=== PATIENT | female | born 1955 | race Two or more races ===

== ENCOUNTER 2016-10-23 07:37 | Inpatient (IN) | payer MEDICARE, OTHER ==
[~2016-10-23] VITALS: Ht 165.1 cm; Wt 71.0 kg
[~2016-10-23 07:37] MED LIST: ATOR40TA52 PO; FLUO20CA19 PO; GABA800T97 PO; GLIP-115 PO; PANT40TA2 PO
[2016-10-23] MEDS ORDERED: PANTOPRAZOLE SODIUM 40 MG/10 ML VIAL IV STA (08:29)
[2016-10-23] MEDS ORDERED: SODIUM CHLORIDE 0.9% 1,000 ML IVB ONE (08:29)
[2016-10-23] MEDS ORDERED: ONDANSETRON HCL 4 MG/2 ML VIAL IV ONE (08:30)
[2016-10-23 09:07] LABS: Basophils # (auto) 0.1 uL; Basophils % (auto) 0.5 % (0.0-2.0); Eosinophils # (auto) 0 uL; Eosinophils % (auto) 0.1 % (0.0-7.0); Hemoglobin 17.8 g/dL (12.2-16.2); Lymphocytes # (auto) 1.5 uL; Monocytes # (auto) 1.9 uL; Neutrophils # (auto) 15.2 uL; Neutrophils % (auto) 81.4 % (37.0-80.0); White Blood Cell 18.7 10^3/uL (4.4-10.8)
[2016-10-23 09:08] LABS: DEFINITIVE VIEW TRANSMISSION; Mean Corpuscular Hemoglobin 30.5 pg (28.0-32.0); Mean Corpuscular Hgb Conc. 34.2 g/dL (32.0-36.0); Mean Corpuscular Volume 89.2 fL (80.0-100.0); Mean Platelet Volume 8.6 fL (7.4-10.4); Platelet Count (auto) 361 10^3/uL (140-450); Red Cell Distribution Width 12.8 % (11.6-16.0)
[2016-10-23 09:44] LABS: Albumin 4.9 g/dL (3.4-5.0); BUN/Creatinine Ratio 21.5; Calcium 10.6 mg/dL (8.5-10.1); Potassium 4.4 mmol/L (3.5-5.1); Total Protein 8.6 g/dL (6.4-8.2)
[2016-10-23] MEDS ORDERED: InsuLIN REG 1unit/0.01ml Soln (100units/ml) IV ONE (10:00)
[2016-10-23] MEDS ORDERED: InsuLIN R (HUMAN) 100 UNITS in SODIUM CHL 0.9% 99 ML IV SCH (10:14)
[2016-10-23] MEDS ORDERED: DEXTROSE (50%) 50ML SYRG IV PRN ×2 (10:15→16:00)
[2016-10-23] MEDS ORDERED: NITROGLYCERIN 0.4 MG SL TAB SL PRN (10:15)
[2016-10-23] MEDS ORDERED: PROMETHAZINE HCL 25 MG/ML 1ML IV PRN (10:15)
[2016-10-23] MEDS ORDERED: ACETAMINOPHEN 500 MG TAB PO PRN (10:15)
[2016-10-23] MEDS ORDERED: MORPHINE SULF INJ 2 MG/ML SYRINGE 1ML IV PRN ×2 (10:15)
[2016-10-23] MEDS ORDERED: cefTRIAXone 1GM/50ML D5W 50 ML IV ONE (10:30)
[2016-10-23] MEDS: SODIUM CHLORIDE 0.9% 1,000 ML IV SCH ×4 (10:32→23:18)
[2016-10-23] MEDS: ACCU-CHEK COMFORT CURVE STRIP VI SCH ×8 (11:08→23:39)
[2016-10-23 11:28] LABS: BUN/Creatinine Ratio 25.5; Calcium 9.6 mg/dL (8.5-10.1); Potassium 4.2 mmol/L (3.5-5.1)
[2016-10-23] MEDS ORDERED: SODIUM CHLORIDE 0.9% 1,000 ML IV SCH (14:14)
[2016-10-23] MEDS: GABAPENTIN 400 MG CAP PO SCH ×3 (14:24→22:00)
[2016-10-23] MEDS: InsuLIN REG 1unit/0.01ml Soln (100units/ml) SC SCH ×3 (16:17→23:40)
[2016-10-23 17:06] LABS: Urine Bilirubin Negative (Negative); Urine Blood TRACE /uL (Negative); Urine Color Yellow (Yellow); Urine Hyaline Cast FEW /lpf (0 - 2); Urine Ketone TRACE (Negative); Urine Mucus FEW (None Seen); Urine Nitrite Negative (Negative); Urine RBC 1 /hpf (0 - 4); Urine Squamous Epithelial Cell FEW /hpf (<5); Urine Urobilinogen Normal (Negative)
[2016-10-23 17:09] LABS: Urine Glucose 4+ mg/dL (Normal)
[2016-10-23] MEDS: HYDROcodone-ACET 5/325MG TAB PO PRN (21:02)
[2016-10-23 21:18] LABS: BUN/Creatinine Ratio 32.1; Calcium 8.5 mg/dL (8.5-10.1); Potassium 3.5 mmol/L (3.5-5.1)
[2016-10-23 21:22] VITALS: BP 120/85
[2016-10-23 22:35] VITALS: BP 120/85
[2016-10-23] MEDS: TEMAZEPAM 15 MG CAP PO PRN (23:29)
[2016-10-24] MEDS ORDERED: GLIP-116 PO (00:41)
[2016-10-24] MEDS ORDERED: ALPR0.5T PO (00:42)
[2016-10-24] MEDS: ACCU-CHEK COMFORT CURVE STRIP VI SCH ×6 (04:00→23:39)
[2016-10-24] MEDS: InsuLIN REG 1unit/0.01ml Soln (100units/ml) SC SCH ×6 (04:00→23:39)
[2016-10-24 05:00] VITALS: BP 123/67
[2016-10-24 05:26] LABS: Basophils # (auto) 0 uL; Basophils % (auto) 0.3 % (0.0-2.0); Eosinophils # (auto) 0 uL; Eosinophils % (auto) 0.1 % (0.0-7.0); Hematocrit 40.2 % (36.0-46.0); Hemoglobin 13.7 g/dL (12.2-16.2); Lymphocytes # (auto) 3.1 uL; Lymphocytes % (auto) 20.4 % (10.0-50.0); Mean Corpuscular Hemoglobin 31.1 pg (28.0-32.0); Mean Corpuscular Hgb Conc. 34.1 g/dL (32.0-36.0); Mean Corpuscular Volume 91.3 fL (80.0-100.0); Mean Platelet Volume 8.5 fL (7.4-10.4); Monocytes # (auto) 1.1 uL; Monocytes % (auto) 7.4 % (0.0-12.0); Neutrophils % (auto) 71.8 % (37.0-80.0); Platelet Count (auto) 256 10^3/uL (140-450); Red Cell Distribution Width 13.2 % (11.6-16.0); White Blood Cell 15.4 10^3/uL (4.4-10.8)
[2016-10-24] MEDS: SODIUM CHLORIDE 0.9% 1,000 ML IV SCH ×3 (05:34→19:06)
[2016-10-24 05:42] LABS: Albumin 3.5 g/dL (3.4-5.0); Calcium 8.7 mg/dL (8.5-10.1); Potassium 3.5 mmol/L (3.5-5.1)
[2016-10-24 05:45] LABS: Bilirubin, Total 0.7 mg/dL (0.2-1.0); Total Protein 6.2 g/dL (6.4-8.2)
[2016-10-24] MEDS: GABAPENTIN 400 MG CAP PO SCH ×4 (06:00→21:39)
[2016-10-24 08:00] VITALS: BP 110/71
[2016-10-24] MEDS: PANTOPRAZOLE SODIUM 40 MG/10 ML VIAL IV SCH (08:49)
[2016-10-24] MEDS: cefTRIAXone 1GM/50ML D5W 50 ML IV SCH (08:49)
[2016-10-24] MEDS: LORazepam 0.5 MG TAB PO PRN (08:50)
[2016-10-24] MEDS: HYDROcodone-ACET 5/325MG TAB PO PRN ×2 (08:51→17:23)
[2016-10-24 09:30] VITALS: BP 110/71
[2016-10-24 13:00] VITALS: BP 93/63
[2016-10-24 18:17] VITALS: BP 114/72
[2016-10-24 21:46] VITALS: BP 137/79
[2016-10-24] MEDS: TEMAZEPAM 15 MG CAP PO PRN (22:31)
[2016-10-25] VITALS (7 sets, daily range): BP systolic 111–139; BP diastolic 54–92
[2016-10-25] MEDS: SODIUM CHLORIDE 0.9% 1,000 ML IV SCH ×4 (02:19→21:33)
[2016-10-25] MEDS: InsuLIN REG 1unit/0.01ml Soln (100units/ml) SC SCH ×5 (04:00→18:08)
[2016-10-25] MEDS: ACCU-CHEK COMFORT CURVE STRIP VI SCH ×5 (04:03→18:09)
[2016-10-25] MEDS: GABAPENTIN 400 MG CAP PO SCH ×4 (06:13→21:33)
[2016-10-25] MEDS: PANTOPRAZOLE SODIUM 40 MG/10 ML VIAL IV SCH (09:18)
[2016-10-25] MEDS: cefTRIAXone 1GM/50ML D5W 50 ML IV SCH (09:18)
[2016-10-25] MEDS: LORazepam 0.5 MG TAB PO PRN (10:59)
[2016-10-25] MEDS ORDERED: LEVO500T3 PO (14:15)
[2016-10-25] MEDS ORDERED: TEMA15CA5 PO (14:15)
[2016-10-25] MEDS ORDERED: LEVEMIR SC (14:15)
[2016-10-25] MEDS ORDERED: LOP2C PO (14:15)
[2016-10-25] MEDS: TEMAZEPAM 15 MG CAP PO PRN (21:33)
[2016-10-25] MEDS ORDERED: INSULIN DETEMIR(LEVEMIR) 1unit/0.01ml Soln (100units/ml) SC SCH (22:00)
[2016-10-26] MEDS: ACCU-CHEK COMFORT CURVE STRIP VI SCH ×4 (00:17→17:46)
[2016-10-26] MEDS: SODIUM CHLORIDE 0.9% 1,000 ML IV SCH ×3 (04:34→17:45)
[2016-10-26 04:53] VITALS: BP 135/77
[2016-10-26] MEDS: GABAPENTIN 400 MG CAP PO SCH ×3 (06:38→17:45)
[2016-10-26] MEDS: InsuLIN REG 1unit/0.01ml Soln (100units/ml) SC SCH ×4 (06:39→17:46)
[2016-10-26 06:48] LABS: Basophils # (auto) 0 uL; Basophils % (auto) 0.4 % (0.0-2.0); Eosinophils # (auto) 0.1 uL; Eosinophils % (auto) 1.6 % (0.0-7.0); Hematocrit 40.6 % (36.0-46.0); Hemoglobin 13.9 g/dL (12.2-16.2); Lymphocytes % (auto) 27.6 % (10.0-50.0); Mean Corpuscular Hgb Conc. 34.3 g/dL (32.0-36.0); Mean Corpuscular Volume 90.3 fL (80.0-100.0); Mean Platelet Volume 8.4 fL (7.4-10.4); Monocytes # (auto) 0.6 uL; Monocytes % (auto) 8.4 % (0.0-12.0); Neutrophils # (auto) 4.5 uL; Platelet Count (auto) 230 10^3/uL (140-450); Red Cell Distribution Width 12.6 % (11.6-16.0); White Blood Cell 7.2 10^3/uL (4.4-10.8)
[2016-10-26 07:12] LABS: Potassium 3.2 mmol/L (3.5-5.1)
[2016-10-26 07:20] LABS: Albumin 3.9 g/dL (3.4-5.0); BUN/Creatinine Ratio 11.9; Calcium 9.2 mg/dL (8.5-10.1)
[2016-10-26 07:24] LABS: Bilirubin, Total 1.2 mg/dL (0.2-1.0); Total Protein 7.1 g/dL (6.4-8.2)
[2016-10-26 08:00] VITALS: BP 138/80
[2016-10-26] MEDS: PANTOPRAZOLE SODIUM 40 MG/10 ML VIAL IV SCH (08:55)
[2016-10-26] MEDS: cefTRIAXone 1GM/50ML D5W 50 ML IV SCH (08:55)
[2016-10-26 09:00] VITALS: BP 160/70
[2016-10-26] MEDS: HYDROcodone-ACET 5/325MG TAB PO PRN (09:06)
[2016-10-26 13:00] VITALS: BP 143/96
[2016-10-26 17:00] VITALS: BP 132/96
== END 2016-10-26 18:35 | disposition home or self-care (01) | DRG 872 ==
LOC: ER 07:37 → TELE 07:38 → TELE-EAST 21:16
PROVIDERS: ADMIT Internal Medicine; ATTEND Internal Medicine
DX: A41.9 Sepsis, unspecified organism (principal); N39.0 Urinary tract infection, site not specified; E72.51 Non-ketotic hyperglycinemia; E78.5 Hyperlipidemia, unspecified; I10 Essential (primary) hypertension; K52.9 Noninfective gastroenteritis and colitis, unspecified; F41.9 Anxiety disorder, unspecified; M21.371 Foot drop, right foot; E11.42 Type 2 diabetes mellitus with diabetic polyneuropathy; N20.0 Calculus of kidney; Z53.20 Procedure and treatment not carried out because of patient's decision for unspecified reasons; R91.8 Other nonspecific abnormal finding of lung field; M19.90 Unspecified osteoarthritis, unspecified site; Z86.19 Personal history of other infectious and parasitic diseases; Z79.899 Other long term (current) drug therapy; Z90.49 Acquired absence of other specified parts of digestive tract; Z90.89 Acquired absence of other organs; Z82.61 Family history of arthritis; Z79.4 Long term (current) use of insulin
CPT/HCPCS: 36415; 71250; 74176; 80048; 80053; 81001; 82150; 82962; 83036; 83690; 85025; 85652; 86141; 87040; 87086; 87493; 93005; 94761; 96361; 96365; 96375; C9113; J0696; J1815; J2405

== ENCOUNTER 2017-04-09 07:24 | Inpatient (IN) | payer MEDICARE, BC ==
[~2017-04-09] VITALS: Ht 165.1 cm; Wt 73.2 kg
[~2017-04-09 07:24] MED LIST changes: +ALPR0.5T PO; -GLIP-115 PO; +GLIP-116 PO; +LEVEMIR SC; +LEVO500T21 PO; +LOP2C PO; +TEMA15CA5 PO
[2017-04-09] MEDS ORDERED: SODIUM CHLORIDE 0.9% 500 ML IVB ONE (08:38)
[2017-04-09] MEDS ORDERED: PANTOPRAZOLE 40 MG/10 ML VIAL IV STA (08:38)
[2017-04-09] MEDS ORDERED: MORPHINE SULFATE 10 MG/ML INJ 1ML SDV IV ONE (08:45)
[2017-04-09] MEDS ORDERED: ONDANSETRON HCL 4 MG/2 ML VIAL IV ONE (08:45)
[2017-04-09] MEDS ORDERED: cloNIDine HCL 0.1 MG TAB PO ONE (10:00)
[2017-04-09] MEDS ORDERED: InsuLIN REG 1unit/0.01ml Soln (100units/ml) IV ONE ×2 (10:00→11:45)
[2017-04-09 10:30] LABS: Basophils # (auto) 0 uL; Basophils % (auto) 0.1 % (0.0-2.0); Eosinophils # (auto) 0 uL; Hematocrit 51.6 % (36.0-46.0); Hemoglobin 17.4 g/dL (12.2-16.2); Lymphocytes # (auto) 1.4 uL; Lymphocytes % (auto) 7.5 % (10.0-50.0); Mean Corpuscular Hemoglobin 31.3 pg (28.0-32.0); Mean Corpuscular Hgb Conc. 33.7 g/dL (32.0-36.0); Mean Corpuscular Volume 93.1 fL (80.0-100.0); Monocytes # (auto) 0.9 uL; Monocytes % (auto) 4.8 % (0.0-12.0); Neutrophils # (auto) 16.8 uL; Neutrophils % (auto) 87.6 % (37.0-80.0); Platelet Count (auto) 317 10^3/uL (140-450); Red Blood Cells 5.55 10^6/uL (4.0-5.20); Red Cell Distribution Width 13.3 % (11.8-14.3); White Blood Cell 19.1 10^3/uL (4.4-10.8)
[2017-04-09 10:56] LABS: Urine Bacteria FEW /hpf (None Seen); Urine Blood 1+ /uL (Negative); Urine Hyaline Cast FEW /lpf (0 - 2); Urine WBC <1 /hpf (0 - 5)
[2017-04-09 11:05] LABS: Albumin 5.2 g/dL (3.4-5.0); BUN/Creatinine Ratio 9.3; Bilirubin, Total 1.3 mg/dL (0.2-1.0); Calcium 10.4 mg/dL (8.5-10.1); Potassium 3.8 mmol/L (3.5-5.1); Total Protein 9.1 g/dL (6.4-8.2)
[2017-04-09] MEDS ORDERED: SODIUM CHLORIDE 0.9% 1,000 ML IV SCH ×4 (11:33→17:33)
[2017-04-09] MEDS ORDERED: InsuLIN R (HUMAN) 100 UNITS in SODIUM CHL 0.9% 99 ML IV SCH (11:38)
[2017-04-09] MEDS ORDERED: PANTOPRAZOLE 40 MG/10 ML VIAL IV ONE (11:45)
[2017-04-09] MEDS ORDERED: LORazepam 0.5 MG TAB PO PRN (11:45)
[2017-04-09] MEDS ORDERED: NITROGLYCERIN 0.4 MG SL TAB SL PRN (11:45)
[2017-04-09] MEDS ORDERED: DEXTROSE (50%) 50ML SYRG IV PRN ×2 (11:45)
[2017-04-09] MEDS ORDERED: MORPHINE SULFATE 10 MG/ML INJ 1ML SDV IV PRN ×2 (11:45)
[2017-04-09] MEDS ORDERED: TEMAZEPAM 15 MG CAP PO PRN (11:45)
[2017-04-09] MEDS ORDERED: cefTRIAXone 1GM/50ML D5W 50 ML IV ONE (11:45)
[2017-04-09] MEDS ORDERED: ACETAMINOPHEN 500 MG TAB PO PRN (11:45)
[2017-04-09] MEDS ORDERED: ACCU-CHEK COMFORT CURVE STRIP VI SCH (12:00)
[2017-04-09] MEDS: ACCU-CHEK COMFORT CURVE STRIP VI SCH ×9 (12:45→22:30)
[2017-04-09 13:04] LABS: Hematocrit 50.5 % (36.0-46.0)
[2017-04-09] MEDS: SODIUM CHLORIDE 0.9% 1,000 ML IV SCH ×3 (13:07→17:38)
[2017-04-09] MEDS: InsuLIN R (HUMAN) 100 UNITS in SODIUM CHL 0.9% 99 ML IV SCH (13:22)
[2017-04-09 13:34] LABS: BUN/Creatinine Ratio 11.9; Potassium 4.1 mmol/L (3.5-5.1)
[2017-04-09] MEDS: metroNIDAZOLE 500MG/100ML 100 ML IV SCH ×2 (15:05→18:44)
[2017-04-09] MEDS: PROMETHAZINE HCL 25 MG/ML 1ML IV PRN (15:08)
[2017-04-09 17:16] LABS: Calcium 9.1 mg/dL (8.5-10.1)
[2017-04-09 17:20] LABS: BUN/Creatinine Ratio 14.7
[2017-04-09 18:02] LABS: Hematocrit 45.6 % (36.0-46.0); Hemoglobin 15.8 g/dL (12.2-16.2)
[2017-04-09] MEDS: PANTOPRAZOLE 40 MG TAB PO SCH (22:00)
[2017-04-10] MEDS: SODIUM CHLORIDE 0.9% 1,000 ML IV SCH ×4 (00:04→20:59)
[2017-04-10] MEDS: metroNIDAZOLE 500MG/100ML 100 ML IV SCH ×5 (00:16→23:37)
[2017-04-10 01:14] LABS: Hematocrit 41.6 % (36.0-46.0); Hemoglobin 14.1 g/dL (12.2-16.2)
[2017-04-10] MEDS: ACCU-CHEK COMFORT CURVE STRIP VI SCH ×15 (01:30→21:45)
[2017-04-10 01:31] LABS: BUN/Creatinine Ratio 18.3; Calcium 9.3 mg/dL (8.5-10.1); Potassium 3.8 mmol/L (3.5-5.1)
[2017-04-10] MEDS: PROMETHAZINE HCL 25 MG/ML 1ML IV PRN (04:33)
[2017-04-10] MEDS: cefTRIAXone 1GM/50ML D5W 50 ML IV SCH (09:13)
[2017-04-10] MEDS: PANTOPRAZOLE 40 MG TAB PO SCH ×2 (09:48→21:53)
[2017-04-10 10:34] LABS: Basophils # (auto) 0.1 uL; Basophils % (auto) 0.5 % (0.0-2.0); Eosinophils # (auto) 0 uL; Eosinophils % (auto) 0.1 % (0.0-7.0); Hemoglobin 13.3 g/dL (12.2-16.2); Lymphocytes # (auto) 3.2 uL; Mean Corpuscular Hemoglobin 31.1 pg (28.0-32.0); Mean Corpuscular Hgb Conc. 33.3 g/dL (32.0-36.0); Mean Corpuscular Volume 93.3 fL (80.0-100.0); Monocytes # (auto) 1.9 uL; Monocytes % (auto) 11.3 % (0.0-12.0); Neutrophils # (auto) 11.5 uL; Neutrophils % (auto) 69.1 % (37.0-80.0); Nucleated Red Blood Cells % 0.1 %; Platelet Count (auto) 225 10^3/uL (140-450); Red Blood Cells 4.28 10^6/uL (4.0-5.20); Red Cell Distribution Width 13.1 % (11.8-14.3); White Blood Cell 16.6 10^3/uL (4.4-10.8)
[2017-04-10 10:55] LABS: Albumin 3.7 g/dL (3.4-5.0); Bilirubin, Total 0.8 mg/dL (0.2-1.0); Calcium 8.9 mg/dL (8.5-10.1); Potassium 3.3 mmol/L (3.5-5.1); Total Protein 6.8 g/dL (6.4-8.2)
[2017-04-10] MEDS: InsuLIN R (HUMAN) 100 UNITS in SODIUM CHL 0.9% 99 ML IV SCH (12:45)
[2017-04-10] MEDS ORDERED: INSULIN DETEMIR(LEVEMIR) 1unit/0.01ml Soln (100units/ml) SC ONE (13:30)
[2017-04-10] MEDS ORDERED: POTASSIUM CHL 20 Meq TABLET PO ONE (13:45)
[2017-04-10 16:45] LABS: Calcium 8.8 mg/dL (8.5-10.1); Potassium 3.5 mmol/L (3.5-5.1)
[2017-04-10] MEDS: HYDROcodone-ACET 5/325MG TAB PO PRN (17:39)
[2017-04-10] MEDS: INSULIN DETEMIR(LEVEMIR) 1unit/0.01ml Soln (100units/ml) SC SCH (21:53)
[2017-04-10] MEDS: MAGNESIUM OXIDE 400 MG TAB PO SCH (21:55)
[2017-04-10 22:00] VITALS: BP 113/70
[2017-04-10 22:50] LABS: Albumin 3.4 g/dL (3.4-5.0); Calcium 8.3 mg/dL (8.5-10.1); Potassium 3.6 mmol/L (3.5-5.1); Total Protein 5.8 g/dL (6.4-8.2)
[2017-04-11] MEDS: ACCU-CHEK COMFORT CURVE STRIP VI SCH ×7 (01:57→23:29)
[2017-04-11] MEDS: SODIUM CHLORIDE 0.9% 1,000 ML IV SCH ×4 (01:57→21:48)
[2017-04-11] MEDS: HYDROcodone-ACET 5/325MG TAB PO PRN ×2 (01:59→20:08)
[2017-04-11] MEDS ORDERED: DEXTROSE (50%) 50ML SYRG IV PRN (03:15)
[2017-04-11] MEDS: InsuLIN REG 1unit/0.01ml Soln (100units/ml) SC SCH ×6 (04:10→23:29)
[2017-04-11] MEDS: metroNIDAZOLE 500MG/100ML 100 ML IV SCH ×4 (05:30→23:28)
[2017-04-11 05:45] LABS: Basophils # (auto) 0.1 uL; Basophils % (auto) 0.6 % (0.0-2.0); Eosinophils # (auto) 0.1 uL; Eosinophils % (auto) 1.4 % (0.0-7.0); Hematocrit 33.7 % (36.0-46.0); Hemoglobin 11.7 g/dL (12.2-16.2); Lymphocytes # (auto) 2.3 uL; Lymphocytes % (auto) 22.6 % (10.0-50.0); Mean Corpuscular Hemoglobin 32.1 pg (28.0-32.0); Mean Corpuscular Hgb Conc. 34.6 g/dL (32.0-36.0); Mean Corpuscular Volume 92.8 fL (80.0-100.0); Monocytes # (auto) 0.8 uL; Monocytes % (auto) 7.8 % (0.0-12.0); Neutrophils # (auto) 6.9 uL; Neutrophils % (auto) 67.6 % (37.0-80.0); Platelet Count (auto) 155 10^3/uL (140-450); Red Blood Cells 3.63 10^6/uL (4.0-5.20); Red Cell Distribution Width 13.2 % (11.8-14.3); White Blood Cell 10.2 10^3/uL (4.4-10.8)
[2017-04-11 06:02] LABS: Albumin 3.3 g/dL (3.4-5.0); BUN/Creatinine Ratio 28.6; Bilirubin, Total 0.9 mg/dL (0.2-1.0); Calcium 8.2 mg/dL (8.5-10.1); Magnesium 2.1 mg/dL (1.6-2.6); Potassium 3.9 mmol/L (3.5-5.1); Total Protein 5.8 g/dL (6.4-8.2)
[2017-04-11] MEDS: INSULIN DETEMIR(LEVEMIR) 1unit/0.01ml Soln (100units/ml) SC SCH ×2 (06:46→21:29)
[2017-04-11 09:00] VITALS: BP 121/69
[2017-04-11] MEDS: cefTRIAXone 1GM/50ML D5W 50 ML IV SCH (10:11)
[2017-04-11] MEDS: MAGNESIUM OXIDE 400 MG TAB PO SCH ×2 (10:11→21:35)
[2017-04-11] MEDS: PANTOPRAZOLE 40 MG TAB PO SCH ×2 (10:11→21:35)
[2017-04-11 13:00] VITALS: BP 130/84
[2017-04-11 17:00] VITALS: BP 132/68
[2017-04-11 21:59] VITALS: BP 130/74
[2017-04-12] MEDS: ACCU-CHEK COMFORT CURVE STRIP VI SCH ×5 (03:48→19:33)
[2017-04-12] MEDS: InsuLIN REG 1unit/0.01ml Soln (100units/ml) SC SCH ×5 (03:48→19:34)
[2017-04-12 05:00] VITALS: BP 158/82
[2017-04-12] MEDS: SODIUM CHLORIDE 0.9% 1,000 ML IV SCH ×3 (05:08→18:58)
[2017-04-12] MEDS: PROMETHAZINE HCL 25 MG/ML 1ML IV PRN ×2 (05:08→10:52)
[2017-04-12] MEDS: metroNIDAZOLE 500MG/100ML 100 ML IV SCH ×3 (05:40→17:52)
[2017-04-12] MEDS: HYDROcodone-ACET 5/325MG TAB PO PRN ×2 (05:43→20:05)
[2017-04-12] MEDS: INSULIN DETEMIR(LEVEMIR) 1unit/0.01ml Soln (100units/ml) SC SCH ×2 (06:37→21:44)
[2017-04-12] MEDS: cefTRIAXone 1GM/50ML D5W 50 ML IV SCH (08:51)
[2017-04-12 09:00] VITALS: BP 137/81
[2017-04-12] MEDS: MAGNESIUM OXIDE 400 MG TAB PO SCH ×2 (10:52→21:39)
[2017-04-12] MEDS: PANTOPRAZOLE 40 MG TAB PO SCH ×2 (10:52→21:39)
[2017-04-12 13:00] VITALS: BP 149/93
[2017-04-12 17:00] VITALS: BP 143/90
[2017-04-12 22:00] VITALS: BP 148/94
[2017-04-13] MEDS: metroNIDAZOLE 500MG/100ML 100 ML IV SCH ×2 (00:16→06:45)
[2017-04-13] MEDS: SODIUM CHLORIDE 0.9% 1,000 ML IV SCH (01:04)
[2017-04-13] MEDS: InsuLIN REG 1unit/0.01ml Soln (100units/ml) SC SCH ×5 (04:00→16:00)
[2017-04-13] MEDS: ACCU-CHEK COMFORT CURVE STRIP VI SCH ×5 (04:25→16:00)
[2017-04-13 05:04] VITALS: BP 136/76
[2017-04-13 06:22] LABS: INR 1.04 (0.9-1.15); Partial Thromboplastin Time 25.4 sec (22.64-33.71); Prothrombin Time 11.3 sec (9.37-12.3)
[2017-04-13] MEDS: INSULIN DETEMIR(LEVEMIR) 1unit/0.01ml Soln (100units/ml) SC SCH (06:37)
[2017-04-13] MEDS: HYDROcodone-ACET 5/325MG TAB PO PRN (07:58)
[2017-04-13 08:00] VITALS: BP 132/76
[2017-04-13] MEDS ORDERED: LIDOCAINE VISCOUS 2% 15ML UD ONE (08:22)
[2017-04-13] MEDS ORDERED: SODIUM CHLORIDE LOCK 10 ML ONE (08:22)
[2017-04-13] MEDS ORDERED: diphenhdrAMINE HCL 50 MG/1 ML VL ONE (08:23)
[2017-04-13] MEDS: cefTRIAXone 1GM/50ML D5W 50 ML IV SCH (08:49)
[2017-04-13] MEDS: MAGNESIUM OXIDE 400 MG TAB PO SCH (09:36)
[2017-04-13] MEDS: PANTOPRAZOLE 40 MG TAB PO SCH (09:37)
[2017-04-13 12:00] VITALS: BP 156/99
[2017-04-13] MEDS: fentaNYL CITRATE 100 MCG/2 ML VL ONE ×3 (12:23→12:31)
[2017-04-13] MEDS: MIDAZOLAM HCL 5 MG/ML-1ML VIAL ONE ×3 (12:23→12:31)
[2017-04-13] MEDS ORDERED: PANT40T PO (12:37)
[2017-04-13] MEDS ORDERED: SODIUM CHLORIDE 0.9% 1,000 ML IV SCH (13:00)
[2017-04-13 16:29] VITALS: BP_SYST 137; BP_SYST 166; BP_DIAS 106; BP_DIAS 91
[2017-04-13 17:00] VITALS: BP 137/91
== END 2017-04-13 17:20 | disposition home or self-care (01) | DRG 377 ==
LOC: EDBD 07:24 → ER 07:24 → TELE 07:25 → TELE-E-ADS 04-10 14:35 → TELE-WESTW 04-10 17:30 → WEST WING 04-12 23:40
PROVIDERS: ADMIT Internal Medicine; ATTEND Internal Medicine
PROC: 0DB68ZX Excision of Stomach, Via Natural or Artificial Opening Endoscopic, Diagnostic (ICD-10-PCS; principal; 2017-04-13 12:20)
DX: K92.0 Hematemesis (principal); I21.4 Non-ST elevation (NSTEMI) myocardial infarction; E11.10 Type 2 diabetes mellitus with ketoacidosis without coma; I47.1 Supraventricular tachycardia; I24.9 Acute ischemic heart disease, unspecified; R10.9 Unspecified abdominal pain; D72.829 Elevated white blood cell count, unspecified; E78.5 Hyperlipidemia, unspecified; E87.6 Hypokalemia; I10 Essential (primary) hypertension; K21.0 Gastro-esophageal reflux disease with esophagitis; Z86.19 Personal history of other infectious and parasitic diseases; Z90.49 Acquired absence of other specified parts of digestive tract; Z90.89 Acquired absence of other organs
CPT/HCPCS: 36415; 43239; 71010; 74176; 80048; 80053; 80061; 81001; 82150; 82270; 82962; 83036; 83690; 83735; 83880; 84484; 85014; 85018; 85025; 85045; 85610; 85652; 85730; 87040; 87081; 87086; 87493; 93005; 93306; 96361; 96374; 96375; C9113; J0696; J1815; J2250; J2405; J3490

== ENCOUNTER → 2017-05-08 | Outpatient (CLI) | payer MEDICARE, OTHER ==
[~2017-05-08] MED LIST changes: +PANT40T PO
== END | disposition home or self-care (01) ==
LOC: LAB 13:58
PROVIDERS: ATTEND Internal Medicine Cardiovascular Disease
DX: D86.9 Sarcoidosis, unspecified (principal)
CPT/HCPCS: 82164

== ENCOUNTER 2017-08-10 08:50 | Emergency (ER) | payer MEDICARE, OTHER ==
[~2017-08-10] VITALS: Ht 162.6 cm; Wt 68.0 kg
[2017-08-10 09:45] VITALS: BP 147/89
[2017-08-10] MEDS ORDERED: SODIUM CHLORIDE 0.9% 1,000 ML IV ONE ×2 (09:56)
[2017-08-10 10:43] LABS: Alanine Aminotransferase 35 U/L (13-56); Albumin 4.1 g/dL (3.4-5.0); Alkaline Phosphatase 96 U/L (45-117); Anion Gap 7 (5-15); Aspartate Aminotransferase 19 U/L (15-37); BUN/Creatinine Ratio 10.2; Bilirubin, Total 0.6 mg/dL (0.2-1.0); Blood Urea Nitrogen 6 mg/dL (7-18); Calcium 9.1 mg/dL (8.5-10.1); Carbon Dioxide 27 mmol/L (21-32); Chloride 107 mmol/L (98-107); GFR African American 132 mL/min; GFR Non-African American 109 mL/min; Glucose 180 mg/dL (74-106); Potassium 4.1 mmol/L (3.5-5.1); Sodium 141 mmol/L (136-145); Total Protein 7.3 g/dL (6.4-8.2)
[2017-08-10 11:34] LABS: Urine WBC None Seen /hpf (0 - 5)
[2017-08-10 11:48] LABS: Urine Bacteria NONE SEEN /hpf (None Seen); Urine Blood Negative /uL (Negative); Urine Specific Gravity 1.005 (1.001-1.035)
[2017-08-10 13:00] LABS: Basophils # (auto) 0 uL; Basophils % (auto) 0.8 % (0.0-2.0); Eosinophils # (auto) 0.2 uL; Hematocrit 39.5 % (36.0-46.0); Hemoglobin 13.3 g/dL (12.2-16.2); Lymphocytes # (auto) 1.4 uL; Lymphocytes % (auto) 28.5 % (10.0-50.0); Mean Corpuscular Hemoglobin 31.1 pg (28.0-32.0); Mean Corpuscular Hgb Conc. 33.7 g/dL (32.0-36.0); Mean Corpuscular Volume 92.3 fL (80.0-100.0); Monocytes # (auto) 0.4 uL; Monocytes % (auto) 8.4 % (0.0-12.0); Neutrophils # (auto) 2.9 uL; Neutrophils % (auto) 58.3 % (37.0-80.0); Nucleated Red Blood Cells % 0.1 %; Platelet Count (auto) 208 10^3/uL (140-450); Red Blood Cells 4.29 10^6/uL (4.0-5.20); White Blood Cell 5.1 10^3/uL (4.4-10.8)
== END 2017-08-10 13:31 | disposition home or self-care (01) ==
LOC: ER 08:50
DX: E11.65 Type 2 diabetes mellitus with hyperglycemia (principal); G89.29 Other chronic pain; M54.5 Low back pain; K21.9 Gastro-esophageal reflux disease without esophagitis; E78.5 Hyperlipidemia, unspecified; Z90.49 Acquired absence of other specified parts of digestive tract
CPT/HCPCS: 36415; 74176; 80053; 81001; 82962; 84484; 85025; 96360; 96361; 99285; J7030

== ENCOUNTER 2017-08-11 12:24 | Emergency (ER) | payer MEDICARE, BC ==
[~2017-08-11] VITALS: Ht 165.1 cm; Wt 68.0 kg
[2017-08-11 13:10] LABS: Basophils # (auto) 0.1 uL; Basophils % (auto) 0.8 % (0.0-2.0); Eosinophils # (auto) 0 uL; Eosinophils % (auto) 0.1 % (0.0-7.0); Hematocrit 41.8 % (36.0-46.0); Hemoglobin 14.4 g/dL (12.2-16.2); Lymphocytes % (auto) 12.9 % (10.0-50.0); Mean Corpuscular Hemoglobin 31.3 pg (28.0-32.0); Mean Corpuscular Hgb Conc. 34.4 g/dL (32.0-36.0); Monocytes # (auto) 0.6 uL; Monocytes % (auto) 7.3 % (0.0-12.0); Neutrophils # (auto) 5.9 uL; Neutrophils % (auto) 78.9 % (37.0-80.0); Nucleated Red Blood Cells % 0.1 %; Platelet Count (auto) 279 10^3/uL (140-450); Red Cell Distribution Width 13.1 % (11.8-14.3); White Blood Cell 7.5 10^3/uL (4.4-10.8)
[2017-08-11 13:32] LABS: Alanine Aminotransferase 35 U/L (13-56); Albumin 4.7 g/dL (3.4-5.0); Alkaline Phosphatase 86 U/L (45-117); Amylase 30 U/L (25-115); Anion Gap 17 (5-15); Aspartate Aminotransferase 21 U/L (15-37); BUN/Creatinine Ratio 8.2; Blood Urea Nitrogen 7 mg/dL (7-18); Calcium 9.6 mg/dL (8.5-10.1); Carbon Dioxide 18 mmol/L (21-32); Chloride 106 mmol/L (98-107); GFR African American 87 mL/min; GFR Non-African American 72 mL/min; Glucose 321 mg/dL (74-106); Lipase 106 U/L (73-393); Magnesium 2.1 mg/dL (1.6-2.6); Potassium 3.1 mmol/L (3.5-5.1); Sodium 141 mmol/L (136-145); Total Protein 8.4 g/dL (6.4-8.2)
[2017-08-11] MEDS ORDERED: MORPHINE SULFATE 10 MG/5 ML ORAL SOLN PO ONE (14:30)
[2017-08-11] MEDS ORDERED: ONDANSETRON ODT 4 MG TAB PO ONE (14:30)
[2017-08-11] MEDS ORDERED: SODIUM CHLORIDE 0.9% 1,000 ML IV ONE (14:32)
[2017-08-11] MEDS ORDERED: InsuLIN REG 1unit/0.01ml Soln (100units/ml) IV ONE (14:45)
[2017-08-11] MEDS ORDERED: ONDANSETRON HCL 4 MG/2 ML VIAL IV ONE (15:00)
[2017-08-11] MEDS ORDERED: MORPHINE SULFATE 4 MG/ML SYR/VIAL IV ONE (15:00)
[2017-08-11] MEDS ORDERED: POTASSIUM CHL 10% (20 MEQ/15ML) 15ml ORAL SOLN PO ONE (16:45)
[2017-08-11 17:58] VITALS: BP 145/87
== END 2017-08-11 18:00 | disposition home or self-care (01) ==
LOC: ER 12:24
DX: E11.65 Type 2 diabetes mellitus with hyperglycemia (principal); E87.6 Hypokalemia; K21.9 Gastro-esophageal reflux disease without esophagitis; Z90.49 Acquired absence of other specified parts of digestive tract; Z79.4 Long term (current) use of insulin; Z79.899 Other long term (current) drug therapy
CPT/HCPCS: 36415; 71046; 80053; 82150; 82962; 83690; 83735; 84484; 85025; 93005; 96361; 96374; 96375; 99285; J1815; J2270; J2405; J7030

== ENCOUNTER 2018-07-13 13:47 | Inpatient (IN) | payer MEDICARE, BC | END 2018-07-16 13:23 | disposition home or self-care (01) | LOC: ER 13:47 → OVERFLOW 15:55 → TELE-CENTR 18:15 | DX: N39.0 Urinary tract infection, site not specified (principal); E87.2 Acidosis; K31.84 Gastroparesis; E11.65 Type 2 diabetes mellitus with hyperglycemia; G89.29 Other chronic pain; E78.5 Hyperlipidemia, unspecified; M54.9 Dorsalgia, unspecified ==